=== PATIENT | female | born 1995 ===

== ENCOUNTER 2021-07-04 18:46 | Emergency (ER) | payer OTHER ==
[~2021-07-04] VITALS: Ht 157.5 cm; Wt 127.3 kg
[2021-07-04] MEDS ORDERED: CYCL-1 PO (20:46)
[2021-07-04] MEDS: ketorolac tromethamine 15mg/ml inj. IM ONE (20:53)
[2021-07-04 20:57] VITALS: BP 120/81
== END 2021-07-04 20:59 | disposition home or self-care (01) ==
LOC: ER 18:49
DX: S06.0X0A Concussion without loss of consciousness, initial encounter (principal); M54.2 Cervicalgia; R51.9 Headache, unspecified; Z79.899 Other long term (current) drug therapy; V89.2XXA Person injured in unspecified motor-vehicle accident, traffic, initial encounter; Y93.89 Activity, other specified; Y92.89 Other specified places as the place of occurrence of the external cause; Y99.8 Other external cause status
CPT/HCPCS: 96372; 99283; J1885